=== PATIENT | male | born 1930 | race African-American/Black ===

== ENCOUNTER → 2021-01-09 | Day surgery (SDC) | payer MEDICARE, MEDICAID ==
[~2021-01-09] MED LIST: Heparin 1,000 UNITS/ML VIAL ONE
== END ==
LOC: SDC/OP 12:07
PROVIDERS: ATTEND Family Medicine
PROC: 02HV33Z Insertion of Infusion Device into Superior Vena Cava, Percutaneous Approach (ICD-10-PCS; principal; 2021-01-09)
DX: U07.1 COVID-19 (principal); J12.82 Pneumonia due to coronavirus disease 2019
CPT/HCPCS: 36569; C1751; J1644